=== PATIENT | male | born 1965 | race Caucasian/White ===

== ENCOUNTER 2019-01-13 07:00 | Day surgery (SDC) | payer OTHER ==
[~2019-01-13] VITALS: Ht 162.6 cm; Wt 51.4 kg
[2019-01-13 07:37] VITALS: BP 105/67; PULSE 61; TEMP 97.4
[2019-01-13 08:28] VITALS: BP 96/65; PULSE 63; TEMP 97.3
--- NOTE | 2019-01-13 08:28 | NUR ---
Pt to [facility] via cart from ENDO. Pt drowsy, but awake. Pt ambulates to recliner with stand by assistance. Warm blanket provided. in room. VSS. Pt wanting to rest. Call light within reach.
[2019-01-13 08:43] VITALS: BP 92/66; PULSE 63
--- NOTE | 2019-01-13 08:43 | NUR ---
Pt continues to rest. Denies pain or nausea. Will continue to monitor. Call light within reach.
[2019-01-13 08:58] VITALS: BP 90/68; PULSE 54
--- NOTE | 2019-01-13 08:58 | NUR ---
Pt continues to rest. into see pt. in room.
[2019-01-13 09:13] VITALS: BP 90/57; PULSE 57
--- NOTE | 2019-01-13 09:13 | NUR ---
Discharge instructions reviewed. Pt voices understanding. IV site discontinued with all parts intact. Pt up to dress. Call light within reach.
--- NOTE | 2019-01-13 09:19 | NUR ---
Pt escorted to private car via wheel chair. Pt accompanied home by his .
[2019-01-13 09:22] VITALS: BP 100/67; PULSE 58
== END 2019-01-13 09:22 | disposition home or self-care (01) ==
LOC: SDCO 07:00
DX: Z12.11 Encounter for screening for malignant neoplasm of colon (principal); R63.4 Abnormal weight loss; K21.0 Gastro-esophageal reflux disease with esophagitis; K29.70 Gastritis, unspecified, without bleeding; K26.9 Duodenal ulcer, unspecified as acute or chronic, without hemorrhage or perforation; F17.210 Nicotine dependence, cigarettes, uncomplicated
CPT/HCPCS: J2250; J3010; J7030